=== PATIENT | female | born 1985 | race Caucasian/White ===

== ENCOUNTER 2018-12-04 01:55 | Inpatient (IN) | payer OTHER, BC ==
[2018-12-04] MEDS ORDERED: CITRIC ACID/SODIUM CITRATE 30 ML UNIT-DOSE CUP PO ONE (03:00)
[2018-12-04] MEDS ORDERED: ELECTROLYTE-148 SOLN 500 ML IV ONE (03:00)
[2018-12-04] MEDS ORDERED: ELECTROLYTE-148 SOLN 1,000 ML IV SCH ×2 (03:30→06:00)
[2018-12-04 05:05] VITALS: BMI 25.0
--- NOTE | 2018-12-04 06:04 | HP ---
Past Medical History - Primary Care Physician PCP:: Asad Moffett - Admission Chief Complaint: 33yo P1 with at EGA 39wks admitted in early spontaneous labor in breech presentation, for C/S. 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: Migraine Cardiovascular: No: AFIB, Aneurysm, Aortic Insufficiency, Aortic Stenosis, CAD, CHF, Deep Vein Thrombosis, HTN, Hyperlipdemia, [place], Mitral Insufficiency, Mitral Stenosis, Murmur, Pulmonary Hypertension, Other Pulmonary: No: Asthma, Bronchitis, Cancer, COPD, O2 Dependent, Pneumonia, Previously Intubated, Pulmonary Embolus, Pulmonary Fibrosis, Sleep Apnea, Other Gastrointestinal: No: Ascites, Cancer, Constipation, Crohn's Disease, Diverticulitis, Diverticulosis, Esophageal Varices, Gastritis, GERD, GI Bleed, Hemorrhoids, Hiatal Hernia, Inflamatory Bowel Disease, Irritable Bowel Disease, Pancreatitis, Peptic Ulcer Disease, Ulcerative Colitis, Other Hepatobiliary: No: Cirrhosis, Cholelithiasis, Cholecystitis, Choledocholithiasis , Hepatitis A, Hepatitis B, Hepatitis C, Other Renal/: No: Renal Failure, Renal Inusuff, BPH, Cancer, Hematuria, Hemodialysis , Neurogenic Bladder, Renal Calculi, UTI, Other Reproductive: No: Ectopic , Endometriosis, Fibroids, PID, Polycystic Ovary Syndrome, Postmenopausal, Other ...: 4 ...Para: 1 ...Term: 1 ...: 0 ...Spon : 2 ...Induced : 0 ...Multiple Gestation: 0 ...LMP: 03/08/18 ... Weeks Gestation by Dates: 39 ...EDC by Dates: 12/13/18 ...EDC by Sono: 12/11/18 Heme/Onc: No: Anemia, B12 Deficiency, Bleeding Disorder, Cancer, Current Chemotherapy, Current Radiation Therapy, Hemochromatosis, Hypercoaguable State, Myeloproliferative Synd, Sickle Cell Disease, Sickle Cell Trait, Thrombocytopenia, Other Infectious Disease: No: AIDS, C-Diff, Herpes Zoster, HIV, MRSA, STD's, Tuberculosis, VREF, Other Psych: No: Addictions, Anxiety, Bipolar, Depression, Panic, Psychosis, Schizophrenia, Other Musculoskeletal: No: Bursitis, Chronic low back pain, Hemiparesis, Hemiplegia, Osteoarthritis, Paraplegia, Other Rheumatology: No: Fibromyalgia, Gout, Lupus, Rheumatoid Arthritis, Sarcoidosis, Vasculitis, Other ENT: No: Allergic Rhinitis, Sinusitis, Other Endocrine: No: Hardeman's Disease, Jasiel's Disease, Diabetes Insipidus, Diabetes Mellitus, Hyperparathyroidism, Hyperthyroidism, Hypothyroidism, Osteopenia, SIADH, Other Dermatology: No: Basal Cell, Cellulitis, Eczema, Melanoma, Psoriasis, Squamous Cell, Other - Past Surgical History Past Surgical History: Yes: None Hx Myomectomy: No Hx Transabdominal Cerclage: No Additional Surgical History: Foot surgery 1999 - Smoking History Smoking history: Former smoker Have you smoked in the past 12 months: Yes Aproximately how many cigarettes per day: 3 - Alcohol/Substance Use Hx Alcohol Use: No History of Substance Use: reports: None - Social History Usual Living Arrangement: Yes: With Spouse, With Child Do you think of yourself as: Straight/Heterosexual ADL: Independent History of Recent Travel: No Home Medications - Allergies Allergies/Adverse Reactions: Allergies Allergy/AdvReac Type Severity Reaction Status Date / Time No Known Drug Allergies Allergy Verified 10/11/18 22:30 - Home Medications Home Medications: Ambulatory Orders Pnv No.95/Ferrous Fum/Folic AC [ Vitamin Tablet] 1 each PO DAILY Family Medical History Family History: Unremarkable Review of Systems - Review of Systems Constitutional: reports: Other (Painful Ctx's) Eyes: reports: No Symptoms HENT: reports: No Symptoms Neck: reports: No Symptoms Cardiovascular: reports: No Symptoms Respiratory: reports: No Symptoms Gastrointestinal: reports: No Symptoms Genitourinary: reports: No Symptoms Breasts: reports: No Symptoms Reported Musculoskeletal: reports: No Symptoms Integumentary: reports: No Symptoms Neurological: reports: No Symptoms Endocrine: reports: No Symptoms Hematology/Lymphatic: reports: No Symptoms Psychiatric: reports: No Symptoms Pain Intensity: 6 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 - Maternity Vital Signs: Vital Signs Temperature 97.9 F 12/04/18 03:30 Pulse Rate 88 12/04/18 03:30 Respiratory Rate 20 12/04/18 03:30 Blood Pressure 129/86 12/04/18 03:30 O2 Sat by Pulse Oximetry (%) Constitutional: Yes: Well Nourished, No Distress, Calm Eyes: Yes: WNL, Conjunctiva Clear HENT: Yes: WNL, Atraumatic, Normocephalic Neck: Yes: WNL, Supple, Trachea Midline Cardiovascular: Yes: WNL, Regular Rate and Rhythm Lungs: Clear to auscultation, Normal air movement - Abdominal Exam/OB Fundal Height: 39 Number of Fetuses: Single Presentation: Breech Contractions: Yes Regularity: Regular Intensity: Mod/Strong Monitor Mode: External Heart Rate (range): 125 Heart Rate Location: Midline Category: I Accelerations: Non-Uniform Decelerations: None - Vaginal Exam/OB Vaginal Bleediing: No Speculum Exam: No Dilatation (cm): 1 Amniotic Membrane Status: Intact Presentation: Jose Luis Breech Station: -4 - 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 Musculoskeletal: Yes: WNL Extremities: Yes: WNL Edema: No Integumentary: Yes: WNL Deep Tendon Reflex Grade: Normal +2 ...Motor Strength: WNL Psychiatric: Yes: WNL, Alert, Oriented Hemorrhage Risk Assessment - Risk Factors Medium Risk Factors: Yes: None High Risk Factors: Yes: None Risk Score: 1 Risk Level: Medium Risk Imaging - Results Ultrasound: Report Reviewed, Other (repeated today at bedside) Assessment/Plan 33yo P1 with at EGA 39wks admitted in early spontaneous labor in breech presentation, for C/S. We discussed the risks and benefits of C/S at length, including but not limited to scarring, pain, bleeding, infection, injury to underlying organs and structures, need for additional surgery to repair/treat any problems or complications, complications/injuries, etc. The pt verbalized her understanding and requested to proceed with surgery. The pt is aware that all surgeries have risks and no guarantees can be provided.
[2018-12-04] MEDS ORDERED: WITCH HAZEL 50% (TUCKS) 40 PAD/JAR PAD TP PRN (07:30)
[2018-12-04] MEDS ORDERED: METHYLERGONOVINE MALEATE 0.2 MG/1 ML AMP IM PRN (07:30)
[2018-12-04] MEDS ORDERED: BENZOCAINE 20% 57 GM BOTTLE TP PRN (07:30)
[2018-12-04] MEDS ORDERED: BENZOCAINE 28 GM HEMORRHOIDAL OINTMENT TP PRN (07:30)
--- NOTE | 2018-12-04 07:35 | OP ---
Operative Note - Note: Operative Date: 12/04/18 Pre-Operative Diagnosis: at 39w2d with apont labor. Breech fetus Operation: Primary LT C/S Implants: Live baby girl in complete breech presentation, no meconium in amniotic fluids. Normal ut, tubes, ovaries. Post-Operative Diagnosis: Same as Pre-op Surgeon: Asad Moffett Chief Cruiser: Edward Borges Anesthesiologist/CUTTER MACHINE TENDER: Aj Noriega Anesthesia: Spinal Specimens Removed: Placenta Estimated Blood Loss (mls): 600 Drains & Tubes with Location: [place] cath Drains, Volume Out (mls): 200 Blood Volume Replaced (mls): 0 Fluid Volume Replaced (mls): 1,400 Operative Report Dictated: Yes
[2018-12-04] MEDS ORDERED: ONDANSETRON 4 MG/2 ML VIAL IVPUSH PRN (08:03)
[2018-12-04] MEDS ORDERED: IBUPROFEN 600 MG TABLET (FP) PO PRN (08:03)
--- NOTE | 2018-12-04 08:03 | OP ---
DATE OF OPERATION: 12/04/2018 PREOPERATIVE DIAGNOSIS: at estimated gestational age of 39 weeks 2 days with spontaneous labor, fetus in breech presentation. POSTOPERATIVE DIAGNOSIS: at estimated gestational age of 39 weeks 2 days with spontaneous labor, fetus in breech presentation, delivered. PROCEDURE: Primary low transverse section via Pfannenstiel skin incision. SURGEON: Asad Moffett MD WIRE COINER: NARESH Robertson ANESTHESIOLOGIST: Aj Noriega MD ANESTHESIA: Spinal. COMPLICATIONS: None. PATHOLOGY: Placenta. INTRAVENOUS FLUIDS: 1400 mL. URINE OUTPUT: 200 mL. ESTIMATED BLOOD LOSS: 600 mL. FINDINGS: Live baby girl in complete breech presentation, no meconium in amniotic fluids, weight 6 pounds 0 ounces. Normal uterus, tubes and ovaries. Apgars 9, 9. DESCRIPTION OF PROCEDURE: The patient was met preoperatively. Risks, benefits, alternatives of surgery were discussed in details. The consent form was reviewed and signed. The patient verbalized understanding and requested to proceed with surgery. The patient was brought to the OR with the IV running. She was placed on the surgical table in the supine position. The spinal anesthesia was obtained without complications. The patient was then placed in a supine position with a leftward tilt. She was prepped and draped in the usual sterile fashion. A [place] catheter was left to drain to gravity. A timeout was conducted as per standard protocol. The surgeons then proceeded with the operation. A Pfannenstiel skin incision was made with a knife approximately 2 cm above the pubic symphysis. The incision was taken down to the level of fascia. The fascia was incised in the midline. The incision was extended bilaterally using Perdomo scissors. The fascia was dissected away from the rectus muscles superiorly and inferiorly using sharp dissection. The rectus muscles were in the midline. The peritoneum was identified and entered sharply. The peritoneal incision was extended superiorly and inferiorly using Metzenbaum scissors. The bladder peritoneum was dissected away from the lower uterine segment using sharp dissection. The bladder was reflected downwards. The uterus was incised transversely in the lower uterine segment. The uterine incision was extended using bandage scissors. The baby was delivered from complete breech presentation without complications. The baby was crying spontaneously. The umbilical cord was clamped and cut. The baby was handed to the waiting pension fund manager. The placenta was delivered manually and without complications. The uterus was cleared of all clots and debris. The uterine incision was repaired using a 0 Biosyn suture with a running locking stitch. Good hemostasis was noted. The uterine incision was then imbricated using a secondary layer of closure with a 0 Biosyn suture. The bladder peritoneum was also approximated using a 0 Biosyn suture. Good hemostasis was confirmed. The operative site was irrigated using copious amounts of normal saline. Once the saline was aspirated good hemostasis was confirmed. The parietal peritoneum was then closed using a 2-0 chromic suture. The rectus muscles were approximated using several interrupted 2-0 chromic sutures. The fascia was closed using a 0 Vicryl suture with a running stitch. The subcutaneous adipose tissues and Bran fascia were approximated using several interrupted 2-0 chromic sutures. The skin was closed using a 4-0 Biosyn suture with a subcutaneous stitch. The sponge, lap, needle counts were correct. The patient tolerated the procedure well. She was transferred to the recovery room in stable condition and awake. Lety [id number]
[2018-12-04] MEDS ORDERED: ACETAMINOPHEN 1000 MG/100 ML VIAL (NON FORMULARY) IVPB PRN (08:04)
[2018-12-04] MEDS ORDERED: OXYTOCIN 20 UNITS in 0.9% NS 20 UNIT/1,000 ML INFUS.BAG IV ONE ×2 (08:24→14:13)
[2018-12-04] MEDS: OXYTOCIN 20 UNITS in 0.9% NS 20 UNIT/1,000 ML INFUS.BAG IV SCH ×2 (08:30→14:30)
[2018-12-04] MEDS ORDERED: IBUPROFEN 800 MG/8 ML IJ IVPB ONE (09:22)
[2018-12-04] MEDS: IBUPROFEN 800 MG/8 ML IJ IVPB PRN ×2 (09:30→18:55)
[2018-12-05] MEDS: IBUPROFEN 800 MG/8 ML IJ IVPB PRN (06:01)
[2018-12-05] MEDS ORDERED: BISACODYL 10 MG SUPP.RECT RC PRN (07:30)
[2018-12-05 07:49] LABS: BASO % 0.4 % (0-2.0); EOS % 0.5 % (0-4.5); HEMATOCRIT 31.1 % (32.4-45.2); HEMOGLOBIN 10.6 GM/dL (10.7-15.3); LYMPH % 9.6 % (8-40); MCH 30.3 pg (25.7-33.7); MEAN CELL VOLUME 89.2 fl (80-96); MEAN PLT VOLUME 7.9 fl (7.5-11.1); MONO % 4.4 % (3.8-10.2); NEUT % 85.1 % (42.8-82.8); PLATELET COUNT 251 K/MM3 (134-434); RBC 3.49 M/mm3 (3.60-5.2); RDW 14.2 % (11.6-15.6); WHITE BLOOD COUNT 10.7 K/mm3 (4.0-10.0)
[2018-12-05] MEDS: PRENATAL VITAMINS W/ FOLIC ACID TABLET (FP) PO SCH (09:27)
[2018-12-05] MEDS: ENOXAPARIN NA (PORCINE) 40 MG/0.4 ML DISP.SYRIN SQ SCH (09:28)
--- NOTE | 2018-12-05 09:38 | PN ---
Post Progress Note - Subjective Subjective: Patient without acute complaints. Tolerating clears, without complaints of nausea or vomiting. + Ambulating Denies fevers or chills. without difficulty Pain well controlled [place] removed this AM, voiding. Passing flatus. Post Day: 1 Type of Delivery: Primary C/S Vital Signs: Vital Signs Temperature 98.2 F 12/05/18 07:00 Pulse Rate 78 12/05/18 07:00 Respiratory Rate 20 12/05/18 08:00 Blood Pressure 108/68 12/05/18 07:00 O2 Sat by Pulse Oximetry (%) 100 12/04/18 08:50 Breast Exam: Yes: Soft Uterus: Yes: Fundus Firm, Fundus below umbilicus Incision: Yes: Dressing dry and intact Abdomen/GI: Yes: Abdomen soft, Abdominal Distention (soft, mild), Tender (mild incisional), Passing flatus, Tolerating PO Lochia: Yes: Rubra Lochia, amount: Small Extremities: Yes: Calves non-tender, Edema (trace) Activity: Ambulating - Labs Labs: CBC WBC 10.7 K/mm3 (4.0-10.0) H 12/05/18 07:30 RBC 3.49 M/mm3 (3.60-5.2) L 12/05/18 07:30 Hgb 10.6 GM/dL (10.7-15.3) L 12/05/18 07:30 Hct 31.1 % (32.4-45.2) L 12/05/18 07:30 MCV 89.2 fl (80-96) 12/05/18 07:30 MCH 30.3 pg (25.7-33.7) 12/05/18 07:30 MCHC 34.0 g/dl (32.0-36.0) 12/05/18 07:30 RDW 14.2 % (11.6-15.6) 12/05/18 07:30 Plt Count 251 K/MM3 (134-434) 12/05/18 07:30 MPV 7.9 fl (7.5-11.1) D 12/05/18 07:30 Absolute Neuts (auto) 9.2 K/mm3 (1.5-8.0) H 12/05/18 07:30 Neutrophils % 85.1 % (42.8-82.8) H D 12/05/18 07:30 Lymphocytes % 9.6 % (8-40) D 12/05/18 07:30 Monocytes % 4.4 % (3.8-10.2) 12/05/18 07:30 Eosinophils % 0.5 % (0-4.5) D 12/05/18 07:30 Basophils % 0.4 % (0-2.0) 12/05/18 07:30 Nucleated RBC % 0 % (0-0) 12/05/18 07:30 Assessment/Plan 33 yo POD # 1 s/p primary CD, afebrile, vital signs stable, doing well 1. Continue routine postoperative care. 2. AM CBC without anemia 3. Rh positive status, no rhogam indicated. 4. Encourage ambulation and incentive spirometer use 5. Continue oral pain medication 6. Anticipate discharge home postoperative day #3 or #4
[2018-12-05] MEDS: SIMETHICONE 80 MG TAB.CHEW (FP) PO PRN ×2 (10:07→19:42)
[2018-12-05] MEDS: ACETAMINOPHEN 325 MG TABLET (FP) PO PRN (10:07)
[2018-12-05] MEDS: IBUPROFEN 600 MG TABLET (FP) PO PRN ×2 (13:03→19:38)
[2018-12-05] MEDS: oxyCODONE HCL 5 MG TABLET PO PRN ×2 (14:43→19:40)
[2018-12-05] MEDS: SENNOSIDES/DOCUSATE COMBO (SENNA PLUS) TABLET (UD) PO PRN (19:41)
[2018-12-06] MEDS: SIMETHICONE 80 MG TAB.CHEW (FP) PO PRN ×4 (00:01→23:24)
[2018-12-06] MEDS: IBUPROFEN 600 MG TABLET (FP) PO PRN ×6 (00:02→23:25)
[2018-12-06] MEDS: oxyCODONE HCL 5 MG TABLET PO PRN ×6 (00:02→23:24)
--- NOTE | 2018-12-06 08:00 | PN ---
Progress Note (short form) - Note Progress Note: ppd 2 ,no c/o , voids ok ,passing gas gas . no excess vaginal bleeding CBC, BMP 12/05/18 07:30 Last Vital Signs Temp Pulse Resp BP Pulse Ox 98.6 F 82 18 129/70 100 12/05/18 22:00 12/05/18 22:00 12/05/18 22:00 12/05/18 22:00 12/04/18 08:50 abdomen soft, no distension, no cva incision dry, clean, healing well no calf tenderness . plan ambulate, cbc pain management
[2018-12-06] MEDS: ENOXAPARIN NA (PORCINE) 40 MG/0.4 ML DISP.SYRIN SQ SCH (10:23)
[2018-12-06] MEDS: PRENATAL VITAMINS W/ FOLIC ACID TABLET (FP) PO SCH (10:24)
--- NOTE | 2018-12-06 11:40 | PATH ---
Surgical Pathology Report Patient Name: DEVEN KENDRICK Med. Rec. #: [id number] /Age/Gender: 1985 (Age: 33) / F Account: [id number] Location: [facility] OBS/TRANSACTION COORDINATOR Taken: 12/04/2018 Received: 12/04/2018 Reported: 12/06/2018 Physicians: Asad Moffett M.D. Specimen(s) Received PLACENTA Clinical History , 39 weeks breech presentation S/P AB x2 Final Diagnosis PLACENTA: THIRD TRIMESTER PLACENTA. TRIVASCULAR CORD. MEMBRANES WITH NO DIAGNOSTIC ABNORMALITIES. Electronically Signed Nisha Mitchell M.D. Gross Description The specimen is received fresh labeled placenta and is a 351 gram, 17 x15 x 2.1cm. placenta with attached membranes and umbilical cord. The attached membranes are glistening, translucent, and insert marginally. The umbilical cord measures 7 cm. in length and averages 1.1 cm. in diameter. The cord inserts eccentrically, 3 centimeter to the nearest margin. No true knots or strictures are identified. Cut surface of the umbilical cord reveals 3 vessels. Sectioning reveals red-brown, spongy parenchyma. No lesions are identified. Technician Support Engineer sections are submitted in three cassettes as follows: 1- membrane rolls and umbilical cord; 2-3- full thickness sections of placenta KWS/12/05/2018 davidki/12/05/2018
[2018-12-06] MEDS: SENNOSIDES/DOCUSATE COMBO (SENNA PLUS) TABLET (UD) PO PRN (23:24)
[2018-12-07] MEDS: SIMETHICONE 80 MG TAB.CHEW (FP) PO PRN ×4 (05:07→19:42)
[2018-12-07] MEDS: IBUPROFEN 600 MG TABLET (FP) PO PRN ×4 (05:07→19:43)
[2018-12-07] MEDS: oxyCODONE HCL 5 MG TABLET PO PRN ×4 (05:08→19:42)
[2018-12-07 09:02] LABS: BASO % 0.6 % (0-2.0); HEMATOCRIT 30.2 % (32.4-45.2); HEMOGLOBIN 10.3 GM/dL (10.7-15.3); LYMPH % 24.3 % (8-40); MCH 30.4 pg (25.7-33.7); MCHC 33.9 g/dl (32.0-36.0); MEAN CELL VOLUME 89.8 fl (80-96); MEAN PLT VOLUME 7.7 fl (7.5-11.1); NEUT % 63.1 % (42.8-82.8); PLATELET COUNT 267 K/MM3 (134-434); RBC 3.37 M/mm3 (3.60-5.2); RDW 14.6 % (11.6-15.6); WHITE BLOOD COUNT 7.2 K/mm3 (4.0-10.0)
[2018-12-07] MEDS: ENOXAPARIN NA (PORCINE) 40 MG/0.4 ML DISP.SYRIN SQ SCH (09:18)
[2018-12-07] MEDS: PRENATAL VITAMINS W/ FOLIC ACID TABLET (FP) PO SCH (09:18)
--- NOTE | 2018-12-07 10:25 | PN ---
Progress Note (short form) - Note Progress Note: pod 3 s/p c/s , had bm, ambulating, no c/o CBC, BMP 12/07/18 08:43 Last Vital Signs Temp Pulse Resp BP Pulse Ox 98.0 F 83 18 135/80 100 12/06/18 22:00 12/06/18 22:00 12/06/18 22:00 12/06/18 22:00 12/04/18 08:50 abdomen soft, no distension, BS are present incision dry, healing well, no discharge no calf tenderness lochia mild plan ambulate for d/c home in am
[2018-12-08] MEDS: SIMETHICONE 80 MG TAB.CHEW (FP) PO PRN ×3 (00:47→10:35)
[2018-12-08] MEDS: IBUPROFEN 600 MG TABLET (FP) PO PRN ×3 (00:47→10:35)
[2018-12-08] MEDS: oxyCODONE HCL 5 MG TABLET PO PRN ×2 (00:47→05:56)
[2018-12-08] MEDS: SENNOSIDES/DOCUSATE COMBO (SENNA PLUS) TABLET (UD) PO PRN (00:52)
[2018-12-08 08:39] VITALS: BP 129/63; PULSE 88; TEMP 97.9
--- NOTE | 2018-12-08 09:23 | DS ---
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 Vital Signs: Vital Signs Temperature 97.9 F 12/08/18 08:37 Pulse Rate 88 12/08/18 08:37 Respiratory Rate 18 12/08/18 08:37 Blood Pressure 129/63 12/08/18 08:37 O2 Sat by Pulse Oximetry (%) 100 12/04/18 08:50 Constitutional: Yes: Well Nourished, No Distress, Calm Eyes: Yes: WNL, Conjunctiva Clear, EOM Intact HENT: Yes: WNL, Atraumatic, Normocephalic Neck: Yes: WNL, Supple, Trachea Midline Cardiovascular: Yes: WNL, Regular Rate and Rhythm Respiratory: Yes: WNL, Regular, CTA Bilaterally Gastrointestinal: Yes: WNL ...Rectal Exam: Yes: WNL Renal/: Yes: WNL ....Post : Yes: Uterus firm, Uterus non-tender, Slight lochia rubra Breast(s): Yes: WNL Musculoskeletal: Yes: WNL Extremities: Yes: WNL Edema: No Integumentary: Yes: WNL Wound/Incision: Yes: Clean/Dry, Well Approximated, Sutures Intact Neurological: Yes: WNL, Alert, Oriented ...Motor Strength: WNL Psychiatric: Yes: WNL, Alert, Oriented Labs: CBC, BMP 12/07/18 08:43 Delivery - Delivery Section: Primary, Low Flap Transverse Type of Anesthesia: Spinal Episiotomy/Laceration: None EBL (cc): 600 Delivery, Single - Stages of Labor Date 1st Stage Initiatied: 12/04/18 Time 1st Stage Initiated: 00:30 Date of Delivery: 12/04/18 Time of Delivery: 06:41 Time Placenta Delivered: 06:42 Placenta: Yes: Expressed - Condition of Infant Print Production Coordinator/Cosmetic Sales Consultant Present: Yes Name: Vince Boss Gender: Female Weight: 6 lb Total Hours ROM (Hrs/Mins): 0/2 - 1 Minute Total Score: 9 5 Minutes Total Score: 9 - [place] Feeding Plan Initial Plan: Exclusive throughout hospitalization Discharge Summary Problems reviewed: Yes Reason For Visit: ADMIT C/S Procedures: Principal: primary LST c/s Condition: Good - Instructions Diet, Activity, Other Instructions: regular diet, no intercourse , if fever, pain, heavy vaginal bleeding call follow up office 1 week Referrals: Juan M Mcmahon MD [Staff Physician] - Disposition: HOME - Home Medications Comprehensive Discharge Medication List: Ambulatory Orders Vit/Iron Fum/Folic AC [ Tablet] 1 each PO DAILY 04/25/16 Pnv No.95/Ferrous Fum/Folic AC [ Vitamin Tablet] 1 each PO DAILY Ibuprofen [Motrin -] 600 mg PO QID #28 tablet 12/07/18
[2018-12-08] MEDS: ENOXAPARIN NA (PORCINE) 40 MG/0.4 ML DISP.SYRIN SQ SCH (09:28)
[2018-12-08] MEDS: PRENATAL VITAMINS W/ FOLIC ACID TABLET (FP) PO SCH (09:28)
[2018-12-08] MEDS: ACETAMINOPHEN 325 MG TABLET (FP) PO PRN (10:35)
== END 2018-12-08 12:00 | disposition home or self-care (01) | DRG 788 ==
LOC: JDEL 01:55 → JLDR 03:00 → J3W 14:15
PROVIDERS: ADMIT Obstetrics & Gynecology; ATTEND Obstetrics & Gynecology
PROC: 10D00Z1 Extraction of Products of Conception, Low, Open Approach (ICD-10-PCS; principal; 2018-12-04)
DX: O32.1XX0 Maternal care for breech presentation, not applicable or unspecified (principal); Z3A.39 39 weeks gestation of pregnancy; Z37.0 Single live birth
CPT/HCPCS: 36415; 85025; 88307-TC